=== PATIENT | female | born 1965 | race Caucasian/White ===

== ENCOUNTER 2022-05-23 13:27 | Outpatient (CLI) | payer OTHER, SELFPAY ==
[2022-05-23 14:30] LABS: Chloride* 107 mmol/L (96-114); Potassium* 4.3 mmol/L (3.6-5.1); Sodium* 142 mmol/L (135-149)
[2022-05-23 14:32] LABS: Cholesterol* 236 mg/dL (90-199); Creatinine* 0.6 mg/dL (0.5-1.5); Estimated Glomerular Filt Rate 105 ml/min
[2022-05-23 14:33] LABS: Blood Urea Nitrogen* 18 mg/dL (7-30); Calcium* 9.3 mg/dL (8.4-10.6); Carbon Dioxide* 29 mmol/L (20-32); Glucose* 121 mg/dL (60-115); HDL Cholesterol* 66 mg/dL (>=50); LDL Cholesterol Calculated 93 mg/dL (<100); Triglycerides* 385 mg/dL (40-149)
== END 2022-05-23 13:28 | disposition home or self-care (01) ==
PROVIDERS: PCP Family Medicine; Visit Provider Family Medicine
DX: I10 Essential (primary) hypertension (principal); E03.9 Hypothyroidism, unspecified; E55.9 Vitamin D deficiency, unspecified
CPT/HCPCS: 80048; 80061; 84443

== ENCOUNTER 2023-06-02 08:05 | Outpatient (CLI) | payer OTHER, SELFPAY | END 2023-06-02 08:06 | disposition home or self-care (01) | PROVIDERS: PCP Family Medicine; Visit Provider Family Medicine | DX: Z00.00 Encounter for general adult medical examination without abnormal findings (principal); I10 Essential (primary) hypertension; E03.9 Hypothyroidism, unspecified; E55.9 Vitamin D deficiency, unspecified; E78.00 Pure hypercholesterolemia, unspecified; F33.9 Major depressive disorder, recurrent, unspecified | CPT/HCPCS: 80053; 80061; 82306; 84443 ==

== ENCOUNTER 2023-09-09 10:57 | Outpatient (CLI) | payer OTHER, SELFPAY ==
--- NOTE | 2023-09-09 11:30 | MM_ITS ---
Patient: BRUNO DIAZ Facility:?[facility] Patient ID:?[id number] Site Patient ID:?[id number] Site :?[id number] Study:?XRay-Breast Bilateral 3D W/CAD-09/09/2023 11:30:48 AM Ordering Physician:Pravin Urban Final Report: BILATERAL SCREENING MAMMOGRAM WITH COMPUTER-AIDED DETECTION AND TOMOSYNTHESIS TECHNIQUE: CC and MLO views were obtained. These mammographic images have been obtained using full-field digital technique. These mammographic images were interpreted with the benefit of computer-aided detection. Breast Tomosynthesis was used in this interpretation. COMPARISON FILM: 08/28/22, 08/15/21, 08/13/21. FINDINGS: There are scattered areas of fibroglandular density. IMPRESSION: There is no radiographic evidence for malignancy. ASSESSMENT: BI-RADS Category 1: Negative RECOMMENDATION: Routine screening mammogram in 1 year. A lay language report of this examination will be provided to the patient. Yahir Silverman M.D. Diagnostic Radiologist [email or web address] R& Transcribed: 5:25 p.m. SP/Dictated by: Yahir Silverman MD @ 09/09/2023 12:22:00 PM Signed by:?Yahir Silverman MD @09/09/2023 5:45:15 PM (Electronic Signature)
== END 2023-09-09 10:58 | disposition home or self-care (01) ==
PROVIDERS: PCP Family Medicine; Visit Provider Family Medicine
DX: Z12.31 Encounter for screening mammogram for malignant neoplasm of breast (principal)
CPT/HCPCS: 77063; 77067

== ENCOUNTER 2024-06-17 09:39 | Outpatient (CLI) | payer OTHER, SELFPAY | END 2024-06-17 09:40 | disposition home or self-care (01) | LOC: LKVREF 09:40 | PROVIDERS: PCP Family Medicine; Visit Provider Family Medicine | DX: E03.9 Hypothyroidism, unspecified (principal); E55.9 Vitamin D deficiency, unspecified; I10 Essential (primary) hypertension; R73.9 Hyperglycemia, unspecified | CPT/HCPCS: 80053; 80061; 84443 ==

== ENCOUNTER 2024-06-23 12:38 | Outpatient (CLI) | payer OTHER, SELFPAY ==
[2024-06-23] MEDS: PERFLUTREN LIPID MICROSPHERES 2 ML VIAL IVP (13:30)
[2024-06-23 13:50] VITALS: BP 109/63; PULSE 86
--- NOTE | 2024-06-23 14:42 | W.PM.STED ---
Stress Test Note Date Date Seen: 06/23/24 Date of test: 06/23/24 Providers Primary care provider: Pravin Hoang Stress test physician: Gayla Emanuel Stress Test Note Stress test ordered: Stress Echo Indication for test: Fatigue, shortness of breath, chest discomfort. Stress test medicine: Definity Results discussion: Resting EKG: Sinus rhythm, 75 beats per minute. Poor R-wave progression in anterior precordial leads, isolated flipped T-waves lead V1 without ST segment change. Resting blood pressure: 100/62 Stress test: Patient is consented on exercise treadmill stress echo following Martinez protocol and agrees to proceed. Patient exercised for a total of 4 minutes 46 seconds before reaching exercise capacity in requesting to stop. She was feeling tired and short of breath with the exercise. She did get to her target heart rate, had a maximum heart rate of 154 beats per minute which was 111% of a calculated target heart rate of 138. Her exercise level was consistent with 6.6 Mets. Patient had a rate pressure product of 20,328. She did not have any chest discomfort during the stress test, no arrhythmias were seen. There was no diagnostic ischemic change noted on EKG monitoring. Patient recovered back to baseline. Echo images are pending to couple this test for full formal diagnostic. Definity was used for imaging. Impression: Subjective complaints of exercise fatigue and shortness of breath, objectively negative EKG portion of this stress test. Follow up suggested: We will await the echo images to couple this for a full formal diagnostic. Patient is discharged in stable condition to await results from Dr. Hoang.
== END 2024-06-23 12:39 | disposition home or self-care (01) ==
LOC: STRESS 12:40
PROVIDERS: PCP Family Medicine; Visit Provider Family Medicine
DX: R07.9 Chest pain, unspecified (principal); R06.09 Other forms of dyspnea; R53.83 Other fatigue
CPT/HCPCS: 93016; 93325; 93351; Q9957

== ENCOUNTER 2024-08-30 12:42 | Outpatient (CLI) | payer OTHER, SELFPAY | END 2024-08-30 12:43 | disposition home or self-care (01) | PROVIDERS: PCP Family Medicine; Visit Provider Physician Assistant Medical | DX: M25.50 Pain in unspecified joint (principal) | CPT/HCPCS: 86200; 86431 ==

== ENCOUNTER 2024-10-31 13:39 | Outpatient (CLI) | payer OTHER, SELFPAY ==
--- NOTE | 2024-10-31 14:00 | CRLHL7_ITS ---
For Patients: As a result of the Century Cures Act, medical imaging exams and procedure reports are released immediately into your electronic medical record. You may view this report before your referring provider. If you have questions, please contact your health care provider. INDICATION: BILATERAL SCREENING MAMMOGRAM, ASYMPTOMATIC 59 Y/O FEMALE COMPARISON: 09/09/2023, 08/28/2022, 08/15/2021 TECHNIQUE: Digital mammogram in CC and MLO projections including computer-aided detection (CAD) and tomosynthesis. BREAST COMPOSITION: There are scattered areas of fibroglandular density. FINDINGS: No suspicious findings. ASSESSMENT: BI-RADS 1 Negative RECOMMENDATION: Annual screening mammogram. A lay language report of this examination will be provided to the patient. Dictated by: Yahir Silverman MD @ 11/01/2024 09:52:13 (Electronically Signed)
== END 2024-10-31 13:40 | disposition home or self-care (01) ==
LOC: MAMMO 13:39
PROVIDERS: PCP Family Medicine; Visit Provider Family Medicine
DX: Z12.31 Encounter for screening mammogram for malignant neoplasm of breast (principal)
CPT/HCPCS: 77063; 77067

== ENCOUNTER 2024-11-04 08:40 | Outpatient (CLI) | payer OTHER, SELFPAY | END 2024-11-04 08:41 | disposition home or self-care (01) | LOC: NFLDREF 11-06 05:56 | PROVIDERS: PCP Family Medicine; Referring Provider Family Medicine; Visit Provider Family Medicine | DX: E78.00 Pure hypercholesterolemia, unspecified (principal) | CPT/HCPCS: 80061; 80076 ==

== ENCOUNTER 2024-11-07 10:30 | Outpatient (RCR) | payer OTHER, SELFPAY | END 2025-02-13 11:24 | disposition home or self-care (01) | PROVIDERS: PCP Family Medicine; Visit Provider Podiatrist | DX: M76.60 Achilles tendinitis, unspecified leg (principal); Z51.89 Encounter for other specified aftercare | CPT/HCPCS: 97110; 97140; 97161 ==